=== PATIENT | male | born 1965 | race Caucasian/White ===

== ENCOUNTER → 2016-06-17 | Outpatient (CLI) | payer BC ==
[~2016-06-17] MED LIST: BAYER BACK & B1 EACH PO; BENADRYL25 MG PO; BRONKAID DUAL1 EACH PO; SINGULAIR10 MG PO
== END | disposition home or self-care (01) ==
LOC: AMB 09:30
PROC: 0JB00ZZ Excision of Scalp Subcutaneous Tissue and Fascia, Open Approach (ICD-10-PCS; principal; 2016-06-17)
DX: D17.0 Benign lipomatous neoplasm of skin and subcutaneous tissue of head, face and neck (principal)
CPT/HCPCS: 88304